=== PATIENT | female | born 1990 | race Caucasian/White ===

== ENCOUNTER 2016-11-14 12:20 | Observation (INO) | payer OTHER, MEDICAID ==
[~2016-11-14] VITALS: Ht 167.6 cm; Wt 114.3 kg
--- NOTE | 2016-11-14 12:21 | NUR ---
TAKEN TO OB FOR MONITORING. PT STATES SINCE LAST NIGHT, RIGHT SIDED CRAMPING WITH NAUSEA
[2016-11-14 13:42] VITALS: BP_SYST 122
[2016-11-14] MEDS ORDERED: TERBUTALINE SULFATE 1 MG/ML VIAL SUBCUT ONE (13:45)
== END 2016-11-14 18:44 | disposition home or self-care (01) ==
LOC: SPU 12:30 → EDSTATUS 12:32
PROVIDERS: ADMIT Specialist; ATTEND Specialist
DX: O47.02 False labor before 37 completed weeks of gestation, second trimester (principal); Z3A.24 24 weeks gestation of pregnancy
CPT/HCPCS: 96372; G0378; J3105